=== PATIENT | female | born 1945 | race African-American/Black ===

== ENCOUNTER 2022-03-01 22:37 | Inpatient (IN) | payer OTHER ==
[2022-03-01] MEDS ORDERED: SODIUM CHLORIDE 1,000 ML IV STA ×2 (22:43→23:47)
[2022-03-01 23:33] VITALS: BMI 18.4
[2022-03-01 23:39] LABS: BASO % 0.2 % (0-2.0); EOS % 0.1 % (0-4.5); HEMATOCRIT 27.8 % (32.4-45.2); HEMOGLOBIN 8.8 GM/dL (10.7-15.3); LYMPH % 4.2 % (8-40); MCH 22.2 pg (25.7-33.7); MCHC 31.6 g/dl (32.0-36.0); MEAN CELL VOLUME 70.3 fl (80-96); MEAN PLT VOLUME 7.3 fl (7.5-11.1); MONO % 3.9 % (3.8-10.2); NEUT % 91.6 % (42.8-82.8); PLATELET COUNT 532 10^3/uL (134-434); RBC 3.96 M/mm3 (3.60-5.2); RDW 20.5 % (11.6-15.6); WHITE BLOOD COUNT 16.7 K/mm3 (4.0-10.0)
[2022-03-01] MEDS ORDERED: NOREPINEPHRINE BITARTRATE 16,000 MCG in SODIUM CHLORIDE 484 ML IV SCH (23:45)
[2022-03-01] MEDS ORDERED: PIPERACILLIN/TAZOB 4.5 GM 4.5 GM/100 ML BAG IVPB ONE (23:47)
[2022-03-01] MEDS ORDERED: VANCOMYCIN 1 GM in D5W (PRE-DOCKED) 1,000 MG/250 ML IVPB ONE (23:47)
[2022-03-01] MEDS ORDERED: ACETAMINOPHEN 1000 MG/100 ML BAG IVPB ONE (23:47)
[2022-03-01] MEDS ORDERED: SODIUM CHLORIDE 0.9% 500 ML INFUS.BAG IV ONE (23:49)
[2022-03-01 23:57] LABS: ALBUMIN 1.7 g/dl (3.4-5.0); BLOOD UREA NITROGEN 22.3 mg/dL (7-18)
[2022-03-01 23:58] LABS: ACTIVATED PTT 31.5 SECONDS (25.2-36.5); INR 1.41 (0.83-1.09); PROTHROMBIN TIME (PATIENT) 16.3 SEC (9.7-13.0)
[2022-03-02] LABS: CREATININE 0.8 mg/dL (0.55-1.3)
[2022-03-02 00:01] LABS: BILIRUBIN,TOTAL 0.5 mg/dL (0.2-1); TOT PROT 6.3 g/dl (6.4-8.2)
[2022-03-02 00:03] LABS: LACTIC ACID 3.1 mmol/L (0.4-2.0)
[2022-03-02] MEDS ORDERED: ACETAMINOPHEN INJECTION 100 ML IVPB ONE (00:12)
[2022-03-02] MEDS ORDERED: VANCOMYCIN 1 GRAM (PRE-DOCKED) 1,000 MG/250 ML BAG IVPB ONE (00:13)
[2022-03-02] MEDS ORDERED: PIPERACILLIN/TAZOB 4.5 GM 4.5 GM/100 ML BAG IVPB ONE (00:13)
[2022-03-02 01:02] LABS: PH,URINE 5.5 (5.0-8.0); URINE APPEARANCE CLEAR; URINE BILIRUBIN NEGATIVE (NEGATIVE); URINE COLOR YELLOW; URINE GLUCOSE (UA) NEGATIVE (NEGATIVE); URINE KETONE NEGATIVE (NEGATIVE); URINE LEUK ESTERASE NEGATIVE (NEGATIVE); URINE NITRITE NEGATIVE (NEGATIVE); URINE PROTEIN NEGATIVE (NEGATIVE); URINE UROBILINOGEN 0.2 mg/dL (0.2-1.0)
[2022-03-02 02:02] LABS: ANISOCYTOSIS 1+
[2022-03-02 02:06] LABS: VENOUS BASE EXCESS -3.7 mmol/L (-2-2); VENOUS O2 SATURATION 95.5 % (70-80); VENOUS PCO2 45.4 mmHg (38-52); VENOUS PH 7.31 (7.310-7.410)
[2022-03-02] MEDS ORDERED: SODIUM CHLORIDE 1,000 ML IV SCH ×2 (03:00→07:40)
[2022-03-02] MEDS: NOREPINEPHRINE BITARTRATE 16,000 MCG in SODIUM CHLORIDE 484 ML IV SCH (03:15)
[2022-03-02] MEDS ORDERED: SODIUM CHLORIDE 1,000 ML IV STA (03:17)
[2022-03-02 05:31] LABS: ARTERIAL BLD GAS O2 SATURATION 98.4 % (95-98); ARTERIAL BLOOD GAS BASE EXCESS -4.2 mmol/L (-2-2); ARTERIAL BLOOD GAS PO2 126.7 mmHg (80-100); ARTERIAL BLOOD GAS pH 7.344 (7.350-7.450)
[2022-03-02 05:32] LABS: ALLENS TEST POSITIVE
[2022-03-02 05:34] LABS: VENT RATE 15
[2022-03-02 05:37] LABS: CALCIUM 8.1 mg/dL (8.5-10.1)
[2022-03-02 05:38] LABS: BLOOD UREA NITROGEN 19.8 mg/dL (7-18)
[2022-03-02 05:41] LABS: CREATININE 0.6 mg/dL (0.55-1.3)
[2022-03-02] MEDS ORDERED: PIPERACILLIN/TAZOB 4.5 GM 4.5 GM in DEXTROSE 5%-WATER 100 ML IVPB SCH ×2 (06:30→09:00)
[2022-03-02] MEDS ORDERED: PIPERACILLIN/TAZOBACTAM 4.5 GM VIAL IVPB ONE ×2 (06:48→09:29)
[2022-03-02] MEDS ORDERED: DEXTROSE 5%-WATER 100 ML IVPB ONE ×2 (06:48→09:29)
[2022-03-02] MEDS: INSULIN SLIDING SCALE (NOVOLOG) 1 VIAL SQ SCH ×4 (08:40→21:25)
[2022-03-02 09:07] LABS: HEMATOCRIT 24.6 % (32.4-45.2); HEMOGLOBIN 7.9 GM/dL (10.7-15.3); MCH 22.2 pg (25.7-33.7); MEAN CELL VOLUME 69.4 fl (80-96); MEAN PLT VOLUME 6.8 fl (7.5-11.1); PLATELET COUNT 412 10^3/uL (134-434); RBC 3.55 M/mm3 (3.60-5.2); RDW 19.9 % (11.6-15.6); WHITE BLOOD COUNT 14.7 K/mm3 (4.0-10.0)
[2022-03-02 09:20] LABS: CALCIUM 8.2 mg/dL (8.5-10.1)
[2022-03-02 09:21] LABS: ALBUMIN 1.6 g/dl (3.4-5.0); BLOOD UREA NITROGEN 21.8 mg/dL (7-18); MAGNESIUM 1.6 mg/dL (1.8-2.4)
[2022-03-02 09:24] LABS: CREATININE 0.7 mg/dL (0.55-1.3); PHOSPHOROUS 4.2 mg/dL (2.5-4.9)
[2022-03-02 09:25] LABS: BILIRUBIN,TOTAL 0.5 mg/dL (0.2-1); TOT PROT 5.2 g/dl (6.4-8.2)
[2022-03-02] MEDS: MUPIROCIN 2% TOPICAL OINTMENT FOR DECOLONIZATION NS SCH ×2 (09:51→21:24)
[2022-03-02 09:58] LABS: ANISOCYTOSIS 3+; MACROCYTOSIS 0
[2022-03-02] MEDS ORDERED: MUPIROCIN 2% TOPICAL OINTMENT FOR DECOLONIZATION NS SCH ×2 (10:00)
[2022-03-02] MEDS: ENOXAPARIN NA (PORCINE) 40 MG/0.4 ML DISP.SYRIN SQ SCH (10:01)
[2022-03-02] MEDS: methylPREDNISolone NA SUCC 40 MG/1 ML VIAL IVPUSH SCH ×2 (11:30→18:49)
[2022-03-02] MEDS: ALBUTEROL SO4 2.5/IPRATROPIUM 0.5 INH SOL 3 ML VIAL.NEB. NEB SCH ×3 (11:32→20:03)
[2022-03-02] MEDS ORDERED: MAGNESIUM SULF 50% (8.12 MEQ/2 ML-1 GM VIAL) IVPB ONE (12:17)
[2022-03-02] MEDS ORDERED: AMINO ACIDS 4.25%/D5W 1,000 ML IV SCH (13:15)
[2022-03-02] MEDS ORDERED: MAGNESIUM 2GM/50ML STERILE WATER IVPB IVPB ONE (13:30)
[2022-03-02] MEDS: PIPERACILLIN/TAZOB 3.375 GM 3.375 GM in DEXTROSE 5%-WATER - 50 ML IVPB SCH ×2 (13:30→18:48)
[2022-03-02] MEDS ORDERED: PIPERACILLIN/TAZOBACTAM 3.375 GM VIAL IVPB ONE ×2 (14:29→18:47)
[2022-03-02] MEDS ORDERED: DEXTROSE 5%-WATER - 50 ML IVPB ONE ×2 (14:30→18:47)
[2022-03-02] MEDS ORDERED: VANCOMYCIN/WATER FOR INJ (PEG) 1,000 MG/200 ML BAG IVPB ONE (14:30)
[2022-03-02] MEDS ORDERED: MIDAZOLAM HCL 2 MG/2 ML SINGLE DOSE VIAL IVPUSH ONE (15:15)
[2022-03-02] MEDS: CHLORHEXIDINE GLUCONATE 4% CLEANSER FOR DECOLONIZATION TP SCH (21:25)
[2022-03-02] MEDS ORDERED: CHLORHEXIDINE GLUCONATE 4% CLEANSER FOR DECOLONIZATION TP SCH ×2 (22:00)
[2022-03-03] MEDS ORDERED: DEXTROSE 5%-WATER - 50 ML IVPB ONE ×3 (01:18→14:54)
[2022-03-03] MEDS ORDERED: PIPERACILLIN/TAZOBACTAM 3.375 GM VIAL IVPB ONE ×3 (01:18→14:53)
[2022-03-03] MEDS: PIPERACILLIN/TAZOB 3.375 GM 3.375 GM in DEXTROSE 5%-WATER - 50 ML IVPB SCH ×3 (01:22→17:12)
[2022-03-03] MEDS: methylPREDNISolone NA SUCC 40 MG/1 ML VIAL IVPUSH SCH ×3 (01:22→17:12)
[2022-03-03] MEDS ORDERED: VANCOMYCIN/WATER FOR INJ (PEG) 750 MG/150 ML BAG IVPB SCH (01:30)
[2022-03-03] MEDS ORDERED: VANCOMYCIN 750 MG in DEXTROSE 5%-WATER - 150 ML IVPB SCH (01:30)
[2022-03-03] MEDS: NOREPINEPHRINE BITARTRATE 16,000 MCG in SODIUM CHLORIDE 484 ML IV SCH ×2 (06:09→22:51)
[2022-03-03] MEDS: INSULIN SLIDING SCALE (NOVOLOG) 1 VIAL SQ SCH ×4 (06:27→21:48)
[2022-03-03] MEDS: ALBUTEROL SO4 2.5/IPRATROPIUM 0.5 INH SOL 3 ML VIAL.NEB. NEB SCH ×4 (08:25→20:01)
[2022-03-03] MEDS ORDERED: METOPROLOL TARTRATE 5 MG/5 ML VIAL IVPUSH PRN (09:15)
[2022-03-03] MEDS: MUPIROCIN 2% TOPICAL OINTMENT FOR DECOLONIZATION NS SCH ×2 (10:18→21:40)
[2022-03-03] MEDS: THIAMINE HCL 200 MG/2 ML VIAL IVPB SCH (10:19)
[2022-03-03] MEDS: ENOXAPARIN NA (PORCINE) 40 MG/0.4 ML DISP.SYRIN SQ SCH (10:19)
[2022-03-03 11:16] LABS: HEMATOCRIT 23.7 % (32.4-45.2); HEMOGLOBIN 7.5 GM/dL (10.7-15.3); MCH 22.1 pg (25.7-33.7); MCHC 31.7 g/dl (32.0-36.0); MEAN CELL VOLUME 69.7 fl (80-96); MEAN PLT VOLUME 7.2 fl (7.5-11.1); PLATELET COUNT 410 10^3/uL (134-434); RDW 19.9 % (11.6-15.6); WHITE BLOOD COUNT 19.8 K/mm3 (4.0-10.0)
[2022-03-03 11:43] LABS: CALCIUM 8.1 mg/dL (8.5-10.1)
[2022-03-03 11:44] LABS: BLOOD UREA NITROGEN 34.4 mg/dL (7-18)
[2022-03-03 11:47] LABS: CREATININE 0.8 mg/dL (0.55-1.3)
[2022-03-03] MEDS: VASOPRESSIN 40 UNITS/100 ML BAG IV SCH (12:25)
[2022-03-03] MEDS: AMINO ACIDS 4.25%/D5W 1,000 ML IV SCH (12:25)
[2022-03-03] MEDS ORDERED: LACTATED RINGERS SOLUTION 1,000 ML/1,000 ML INFUS.BAG IV STA (13:08)
[2022-03-03] MEDS: CHLORHEXIDINE GLUCONATE 4% CLEANSER FOR DECOLONIZATION TP SCH (21:40)
[2022-03-03] MEDS ORDERED: SMOFLIPID - FAT EMUL/SOY/MCT/OLIV/FISH OIL 250 ML EMULSION IV SCH (22:00)
[2022-03-03] MEDS ORDERED: FAT EMUL/SOY/MCT/OLIV/FISH OIL 250 ML IV SCH (22:00)
[2022-03-04] MEDS ORDERED: PIPERACILLIN/TAZOBACTAM 3.375 GM VIAL IVPB ONE ×3 (02:36→18:00)
[2022-03-04] MEDS ORDERED: DEXTROSE 5%-WATER - 50 ML IVPB ONE ×3 (02:36→18:00)
[2022-03-04] MEDS: methylPREDNISolone NA SUCC 40 MG/1 ML VIAL IVPUSH SCH ×3 (02:38→18:14)
[2022-03-04] MEDS: PIPERACILLIN/TAZOB 3.375 GM 3.375 GM in DEXTROSE 5%-WATER - 50 ML IVPB SCH ×3 (02:38→18:14)
[2022-03-04] MEDS: NOREPINEPHRINE BITARTRATE 16,000 MCG in SODIUM CHLORIDE 484 ML IV SCH ×2 (04:00→09:00)
[2022-03-04] MEDS: INSULIN SLIDING SCALE (NOVOLOG) 1 VIAL SQ SCH ×3 (06:32→17:00)
[2022-03-04 07:39] LABS: HEMATOCRIT 23.1 % (32.4-45.2); HEMOGLOBIN 7.3 GM/dL (10.7-15.3); MCH 22.6 pg (25.7-33.7); MCHC 31.8 g/dl (32.0-36.0); MEAN CELL VOLUME 71.2 fl (80-96); MEAN PLT VOLUME 7.6 fl (7.5-11.1); PLATELET COUNT 368 10^3/uL (134-434); RBC 3.24 M/mm3 (3.60-5.2); WHITE BLOOD COUNT 17.5 K/mm3 (4.0-10.0)
[2022-03-04 08:10] LABS: CALCIUM 7.9 mg/dL (8.5-10.1)
[2022-03-04 08:11] LABS: BLOOD UREA NITROGEN 46.2 mg/dL (7-18)
[2022-03-04 08:12] LABS: IRON SERUM 9 ug/dL (50-175)
[2022-03-04 08:13] LABS: TOTAL IRON BINDING CAPACITY 78 ug/dL (250-450)
[2022-03-04 08:14] LABS: CREATININE 1.1 mg/dL (0.55-1.3)
[2022-03-04] MEDS: VASOPRESSIN 40 UNITS/100 ML BAG IV SCH (09:00)
[2022-03-04] MEDS: ALBUTEROL SO4 2.5/IPRATROPIUM 0.5 INH SOL 3 ML VIAL.NEB. NEB SCH ×4 (09:00→20:20)
[2022-03-04] MEDS: MUPIROCIN 2% TOPICAL OINTMENT FOR DECOLONIZATION NS SCH (09:45)
[2022-03-04] MEDS ORDERED: VANCOMYCIN/WATER FOR INJ (PEG) 1,000 MG/200 ML BAG IVPB SCH (10:15)
[2022-03-04] MEDS: THIAMINE HCL 200 MG/2 ML VIAL IVPB SCH (10:20)
[2022-03-04] MEDS: ENOXAPARIN NA (PORCINE) 40 MG/0.4 ML DISP.SYRIN SQ SCH (12:21)
[2022-03-04] MEDS: AMINO ACIDS 4.25%/D5W 1,000 ML IV SCH (14:04)
[2022-03-04 14:08] VITALS: TEMP 99.1
[2022-03-04] MEDS ORDERED: MORPHINE 100 MG/100 ML MG IVPB SCH (18:00)
[2022-03-04] MEDS ORDERED: NOREPINEPHRINE BITARTRATE 4 MG/4 ML ML IV ONE (18:21)
[2022-03-04 20:25] VITALS: BP 48/32
[2022-03-04 20:34] VITALS: PULSE 96
== END 2022-03-04 21:05 | disposition expired | DRG 871 ==
LOC: JER 22:37 → JERBED 03-02 00:35 → JICU 03-02 06:43
PROVIDERS: ADMIT Internal Medicine Pulmonary Disease; ATTEND Internal Medicine Pulmonary Disease
DX: A41.9 Sepsis, unspecified organism (principal); R65.21 Severe sepsis with septic shock; J18.9 Pneumonia, unspecified organism; E43 Unspecified severe protein-calorie malnutrition; J96.21 Acute and chronic respiratory failure with hypoxia; R64 Cachexia; J84.9 Interstitial pulmonary disease, unspecified; J44.1 Chronic obstructive pulmonary disease with (acute) exacerbation; E87.2 Acidosis; Z68.1 Body mass index [BMI] 19.9 or less, adult; J44.9 Chronic obstructive pulmonary disease, unspecified; I10 Essential (primary) hypertension; E11.9 Type 2 diabetes mellitus without complications; Z99.81 Dependence on supplemental oxygen; J84.10 Pulmonary fibrosis, unspecified; E88.09 Other disorders of plasma-protein metabolism, not elsewhere classified; E87.5 Hyperkalemia; D75.839 Thrombocytosis, unspecified; E83.42 Hypomagnesemia; I48.91 Unspecified atrial fibrillation
CPT/HCPCS: 36415; 36600; 70450-TC; 71045-TC-FY; 80048; 80053; 81003; 82553; 82803; 82962; 83540; 83550; 83605; 83735; 84100; 85025; 85027; 85610; 85730; 86850; 86900; 86901; 87040; 87086; 87186; 87804; 87899; 93005; 93010; 94640; 94660; 99291; 99292; C9803-CS; G0480; J3490; U0003; U0005